=== PATIENT | female | born 1995 | race Hispanic/Latino ===

== ENCOUNTER → 2024-01-29 | Outpatient (CLI) | payer BC, MEDICAID ==
[~2024-01-29] MED LIST: PREN-134 PO
== END | disposition home or self-care (01) ==
LOC: SHCH 07:53
PROVIDERS: ATTEND Student in an Organized Health Care Education/Training Program
DX: I37.1 Nonrheumatic pulmonary valve insufficiency (principal); R01.1 Cardiac murmur, unspecified; I51.7 Cardiomegaly
CPT/HCPCS: 93306

== ENCOUNTER → 2024-05-18 | Outpatient (CLI) | payer BC, MEDICAID | END | disposition home or self-care (01) | LOC: SHCH 09:20 | PROVIDERS: ATTEND Student in an Organized Health Care Education/Training Program | DX: I08.2 Rheumatic disorders of both aortic and tricuspid valves (principal); I09.89 Other specified rheumatic heart diseases | CPT/HCPCS: 93306 ==